=== PATIENT | male | born 2000 | race Caucasian/White ===

== ENCOUNTER 2020-06-21 13:03 | Emergency (ER) | payer OTHER ==
[2020-06-21] MEDS ORDERED: Magic Mouth Wash PO (14:33)
== END 2020-06-21 14:46 | disposition home or self-care (01) ==
LOC: ER1 13:03
DX: K13.70 Unspecified lesions of oral mucosa (principal); F17.200 Nicotine dependence, unspecified, uncomplicated
CPT/HCPCS: 99282

== ENCOUNTER 2020-07-07 15:53 | Emergency (ER) | payer OTHER ==
[~2020-07-07 15:53] MED LIST: Magic Mouth Wash PO
== END 2020-07-07 18:45 | disposition home or self-care (01) ==
LOC: ER1 15:53
PROVIDERS: Physician Assistant Medical
DX: Z00.00 Encounter for general adult medical examination without abnormal findings (principal); Z79.899 Other long term (current) drug therapy
CPT/HCPCS: 80307; 81001; 99283

== ENCOUNTER 2021-12-10 11:21 | Emergency (ER) | payer OTHER ==
[2021-12-10] MEDS ORDERED: CEPHALEXIN500 M1 PO (12:22)
[2021-12-10] MEDS ORDERED: BACTRIM DS TAB1 EACH PO (12:22)
== END 2021-12-10 11:23 | disposition home or self-care (01) ==
LOC: ER1 11:21
DX: L03.116 Cellulitis of left lower limb (principal); L03.114 Cellulitis of left upper limb; L98.499 Non-pressure chronic ulcer of skin of other sites with unspecified severity; F17.290 Nicotine dependence, other tobacco product, uncomplicated
CPT/HCPCS: 99282